=== PATIENT | female | born 1970 | race Caucasian/White ===

== ENCOUNTER → 2023-08-05 10:13 | Outpatient (REF) | payer OTHER, SELFPAY | LOC: HWRAD 10:13 | PROVIDERS: ATTENDING PHYSICIAN Obstetrics & Gynecology Gynecology; FAMILY PHYSICIAN Family Medicine | DX: N93.9 Abnormal uterine and vaginal bleeding, unspecified (principal) | CPT/HCPCS: 76830; 76856 ==

== ENCOUNTER → 2024-04-02 18:48 | Outpatient (REF) | payer OTHER, SELFPAY | LOC: MRI 18:48 | PROVIDERS: ATTENDING PHYSICIAN Family Medicine | DX: R42 Dizziness and giddiness (principal); R51.9 Headache, unspecified; H53.9 Unspecified visual disturbance | CPT/HCPCS: 70553; A9575 ==

== ENCOUNTER → 2024-04-06 11:56 | Outpatient (REF) | payer OTHER, SELFPAY | LOC: WDC 11:56 | PROVIDERS: ATTENDING PHYSICIAN Family Medicine | DX: Z12.31 Encounter for screening mammogram for malignant neoplasm of breast (principal) | CPT/HCPCS: 77063; 77067 ==